=== PATIENT | female | born 1945 | race Caucasian/White ===

== ENCOUNTER 2021-09-22 09:56 | Inpatient (IN) ==
[2021-09-22] MEDS ORDERED: 0.9 % Sodium Chloride 1,000 ML IVC ONE (10:26)
[2021-09-22] MEDS ORDERED: *HR* Heparin 5,000 UNIT/ML VIAL IVP ONE ×2 (10:28→17:07)
[2021-09-22] MEDS ORDERED: *HR* Heparin 5,000 UNIT/ML VIAL IVP PRN ×4 (10:28→17:07)
[2021-09-22] MEDS ORDERED: Heparin 25,000UNIT/250ML 1/2NS 25,000 UNIT/250 ML IV.SOLN IVC SCH (10:30)
[2021-09-22 11:01] LABS: Basophils % 0.4 %; Eosinophils # 0.3 K/mcL (0.0-0.6); Eosinophils % 3.8 %; Hematocrit 44.8 % (35.3-44.9); Immature Granulocytes % 0.3 % (0-4); Lymphocytes % 27.7 %; Mean Corpuscular HGB Conc 33.5 g/dL (31.6-35.5); Mean Corpuscular Hemoglobin 29.7 pg (28.0-33.3); Mean Corpuscular Volume 88.7 fL (83.0-100.0); Mean Platelet Volume 12.1 fL (9.4-12.4); Monocytes # 0.5 K/mcL (0.0-1.3); Monocytes % 7.2 %; Neutrophils # 4.3 K/mcL (1.6-8.9); Platelet Count 161 K/mcL (140-400); Red Blood Count 5.05 M/mcL (3.82-4.97); Red Cell Distribution Width 14.3 % (11.5-14.5); Segmented Neutrophils % 60.6 %; White Blood Count 7.1 K/mcL (4.3-11.1)
[2021-09-22 11:10] LABS: Heparin anti-factor XA UFH < 0.04 IU/mL (0.30-0.70)
[2021-09-22 11:11] LABS: Prothrombin Time 11.5 Seconds (9.4-12.1)
[2021-09-22 11:12] LABS: Activated Partial Thrombo Time 31.2 Seconds (26.0-36.0); D-Dimer 1199 ng/mLFEU (0-500)
[2021-09-22] MEDS: DilTIAZem 50 MG/50 ML IV.SOLN IVC SCH ×2 (11:13→18:25)
[2021-09-22] MEDS ORDERED: Iopamidol - 370 500 ML MLS IVP ONE (11:17)
[2021-09-22 11:22] LABS: BUN/Creatinine Ratio 20 (6-26); Blood Urea Nitrogen 16 mg/dL (8-23); Calcium 9.5 mg/dL (8.6-10.3); Carbon Dioxide 24 mEq/L (23-29); Chloride 109 mEq/L (98-107); Glucose 128 mg/dL (70-105); Osmolality,Calculated 297 (280-300); Potassium 3.6 mEq/L (3.5-5.1); Sodium 142 mEq/L (136-145); eGFR For African Americans > 60 (> 60); eGFR For Non-African Americans > 60 (> 60)
[2021-09-22 11:23] LABS: Troponin I < 0.03 ng/mL (< 0.04)
[2021-09-22 12:32] LABS: Influenza A PCR Negative (Negative); Influenza B PCR Negative (Negative); Resp. Syncytial Virus PCR Negative (Negative)
[2021-09-22 13:04] LABS: SARS-CoV-2 by PCR (In House) Negative (Negative)
[2021-09-22] MEDS ORDERED: Ondansetron 4 MG/2 ML VIAL IVP PRN (13:25)
[2021-09-22] MEDS ORDERED: Naloxone 0.4 MG/ML INJ IVP PRN (13:25)
[2021-09-22] MEDS ORDERED: Perflutren Lipid Microsphere 1.3 ML in 0.9 % Sodium Chloride 8.7 ML IVP PRN (13:27)
[2021-09-22] MEDS ORDERED: DilTIAZem CD (24hr) 120 MG CAP.ER.24H PO SCH (14:00)
[2021-09-22 14:02] LABS: Magnesium 1.9 mg/dL (1.6-2.6); Phosphorous 3.1 mg/dL (2.7-4.5)
[2021-09-22] MEDS ORDERED: *HR* Warfarin 2.5 MG TABLET PO ONE (18:00)
[2021-09-22] MEDS ORDERED: Warfarin perPT PO SCH (18:00)
[2021-09-22] MEDS ORDERED: *HR* Enoxaparin 120 MG/0.8 ML SYRINGE SQ SCH (18:00)
[2021-09-23 05:00] LABS: Heparin anti-factor XA UFH 0.59 IU/mL (0.30-0.70)
[2021-09-23 05:01] LABS: INR 1.1; Prothrombin Time 12.6 Seconds (9.4-12.1)
[2021-09-23] MEDS: Heparin 25,000UNIT/250ML 1/2NS 25,000 UNIT/250 ML IV.SOLN IVC SCH (05:25)
[2021-09-23] MEDS ORDERED: Metoprolol XL (24 HR) Succ 50 MG TAB.ER.24H PO SCH (09:30)
[2021-09-23] MEDS ORDERED: Furosemide 20 MG/2 ML VIAL IVP ONE (12:40)
[2021-09-23] MEDS: DilTIAZem 50 MG/50 ML IV.SOLN IVC SCH (16:28)
[2021-09-23] MEDS ORDERED: Warfarin perPT PO PRN (18:00)
[2021-09-23] MEDS ORDERED: *HR* Warfarin 2.5 MG TABLET PO ONE (18:00)
[2021-09-23] MEDS: Acetaminophen 325 MG TABLET PO PRN (21:18)
[2021-09-23] MEDS: Metoprolol XL (24 HR) Succ 50 MG TAB.ER.24H PO SCH (21:19)
[2021-09-24 03:29] LABS: INR 1.2; Prothrombin Time 12.9 Seconds (9.4-12.1)
[2021-09-24] MEDS: Heparin 25,000UNIT/250ML 1/2NS 25,000 UNIT/250 ML IV.SOLN IVC SCH ×4 (04:44→23:08)
[2021-09-24] MEDS ORDERED: Regadenoson 0.4 MG/5 ML SYRINGE IVP ONE ×2 (06:45→11:45)
[2021-09-24] MEDS: Metoprolol XL (24 HR) Succ 50 MG TAB.ER.24H PO SCH ×2 (09:19→21:21)
[2021-09-24] MEDS ORDERED: *HR* Warfarin 2.5 MG TABLET PO ONE (18:00)
[2021-09-24] MEDS: Acetaminophen 325 MG TABLET PO PRN (23:07)
[2021-09-25 07:04] LABS: Basophils % 0.5 %; Eosinophils # 0.3 K/mcL (0.0-0.6); Hematocrit 39.4 % (35.3-44.9); Immature Granulocytes % 0.2 % (0-4); Lymphocytes # 2.5 K/mcL (0.6-4.6); Lymphocytes % 42.5 %; Mean Corpuscular Hemoglobin 28.8 pg (28.0-33.3); Mean Platelet Volume 12.2 fL (9.4-12.4); Monocytes # 0.5 K/mcL (0.0-1.3); Monocytes % 8.7 %; Neutrophils # 2.6 K/mcL (1.6-8.9); Platelet Count 127 K/mcL (140-400); Red Blood Count 4.38 M/mcL (3.82-4.97); Red Cell Distribution Width 14.4 % (11.5-14.5); Segmented Neutrophils % 43.1 %
[2021-09-25 07:11] LABS: INR 1.1; Prothrombin Time 12.7 Seconds (9.4-12.1)
[2021-09-25 07:21] LABS: BUN/Creatinine Ratio 26 (6-26); Blood Urea Nitrogen 18 mg/dL (8-23); Calcium 9.1 mg/dL (8.6-10.3); Carbon Dioxide 25 mEq/L (23-29); Chloride 108 mEq/L (98-107); Glucose 105 mg/dL (70-105); Osmolality,Calculated 292 (280-300); Sodium 140 mEq/L (136-145); eGFR For African Americans > 60 (> 60); eGFR For Non-African Americans > 60 (> 60)
[2021-09-25 07:41] LABS: Hemoglobin 12.6 g/dL (11.5-15.4)
[2021-09-25] MEDS: Metoprolol XL (24 HR) Succ 50 MG TAB.ER.24H PO SCH ×2 (09:00→19:43)
[2021-09-25] MEDS ORDERED: 0.9 % Sodium Chloride 500 ML IVC ONE (12:36)
[2021-09-25] MEDS ORDERED: Lidocaine Viscous Oral Soln 15 ML SOLUTION MM PRN (12:36)
[2021-09-25] MEDS: *HR* Midazolam HCl 5 MG/5 ML VIAL IVP PRN ×2 (13:30→13:45)
[2021-09-25] MEDS: *HR* FentaNYL (PF) 100 MCG/2 ML VIAL IVP PRN ×2 (13:30→13:45)
[2021-09-25] MEDS ORDERED: Iopamidol - 370 200 ML INFUS..BTL ONE (16:39)
[2021-09-25] MEDS ORDERED: Nitroglycerin 1,000 MCG/5 ML VIAL IV ONE (16:39)
[2021-09-25] MEDS ORDERED: *HR* Heparin 10,000 UNIT/10 ML VIAL ONE (16:39)
[2021-09-25] MEDS ORDERED: 0.9 % Sodium Chloride 1,000 ML ONE (16:39)
[2021-09-25] MEDS ORDERED: Heparin 1,000 UNITS/500 mL 500 ML ONE (16:39)
[2021-09-25] MEDS: Heparin 25,000UNIT/250ML 1/2NS 25,000 UNIT/250 ML IV.SOLN IVC SCH (17:08)
[2021-09-25] MEDS: Acetaminophen 325 MG TABLET PO PRN (19:56)
[2021-09-26] MEDS: Heparin 25,000UNIT/250ML 1/2NS 25,000 UNIT/250 ML IV.SOLN IVC SCH (00:46)
[2021-09-26 02:47] LABS: INR 1.1; Prothrombin Time 12.8 Seconds (9.4-12.1)
[2021-09-26] MEDS: Metoprolol XL (24 HR) Succ 50 MG TAB.ER.24H PO SCH (08:56)
[2021-09-26] MEDS ORDERED: 0.9 % Sodium Chloride 2,000 ML ONE (09:13)
[2021-09-26] MEDS ORDERED: Heparin 1,000 UNITS/500 mL 500 ML ONE (09:13)
[2021-09-26] MEDS ORDERED: *HR* Heparin 10,000 UNIT/10 ML VIAL ONE (09:13)
[2021-09-26] MEDS ORDERED: Iopamidol - 370 200 ML INFUS..BTL ONE (09:14)
[2021-09-26] MEDS ORDERED: Nitroglycerin 1,000 MCG/5 ML VIAL IV ONE (09:14)
[2021-09-26] MEDS ORDERED: *HR* Midazolam HCl 2 MG/2 ML VIAL ONE (09:16)
[2021-09-26] MEDS ORDERED: *HR* FentaNYL (PF) 100 MCG/2 ML VIAL ONE (09:16)
[2021-09-26 15:04] VITALS: BP 116/77; PULSE 56; TEMP 97.8; O2SAT 97
[2021-09-26] MEDS ORDERED: *HR* Warfarin 5 MG TABLET PO ONE (18:00)
[2021-09-26] MEDS ORDERED: Metoprolol XL (24 HR) Succ 50 MG TAB.ER.24H PO SCH (21:00)
== END 2021-09-26 17:30 | disposition home or self-care (01) | DRG 286 ==
LOC: 3NENU 09:56 → EMEROOARM 09:56 → 3NENU 14:20
PROVIDERS: ADMIT Student in an Organized Health Care Education/Training Program; ATTEND Student in an Organized Health Care Education/Training Program

== ENCOUNTER 2021-11-06 15:01 | Inpatient (IN) ==
[2021-11-06] MEDS ORDERED: 0.9 % Sodium Chloride 1,000 ML IV ONE (16:13)
[2021-11-06 16:33] LABS: Basophils % 0.7 %; Eosinophils # 0.3 K/mcL (0.0-0.6); Eosinophils % 5.7 %; Hematocrit 41.4 % (35.3-44.9); Immature Granulocytes % 0.2 % (0-4); Lymphocytes # 1.8 K/mcL (0.6-4.6); Lymphocytes % 31.2 %; Mean Corpuscular HGB Conc 31.4 g/dL (31.6-35.5); Mean Corpuscular Hemoglobin 28.8 pg (28.0-33.3); Mean Corpuscular Volume 91.8 fL (83.0-100.0); Mean Platelet Volume 12.3 fL (9.4-12.4); Monocytes # 0.4 K/mcL (0.0-1.3); Neutrophils # 3.2 K/mcL (1.6-8.9); Platelet Count 122 K/mcL (140-400); Red Blood Count 4.51 M/mcL (3.82-4.97); Red Cell Distribution Width 15.2 % (11.5-14.5); Segmented Neutrophils % 55.2 %; White Blood Count 5.8 K/mcL (4.3-11.1)
[2021-11-06 16:41] LABS: INR 3.1
[2021-11-06 16:56] LABS: BUN/Creatinine Ratio 17 (6-26); Blood Urea Nitrogen 15 mg/dL (8-23); Calcium 9.3 mg/dL (8.6-10.3); Carbon Dioxide 25 mEq/L (23-29); Chloride 111 mEq/L (98-107); Glucose 119 mg/dL (70-105); Magnesium 2.1 mg/dL (1.6-2.6); Osmolality,Calculated 296 (280-300); Potassium 3.7 mEq/L (3.5-5.1); Sodium 142 mEq/L (136-145); Troponin I < 0.03 ng/mL (< 0.04); eGFR For African Americans > 60 (> 60); eGFR For Non-African Americans > 60 (> 60)
[2021-11-06] MEDS: DilTIAZem 50 MG/50 ML IV.SOLN IVC SCH ×2 (17:14→23:29)
[2021-11-06 17:22] LABS: Thyroid Stimulating Hormone 0.878 mcIU/mL (0.340-5.600)
[2021-11-06] MEDS: Nitroglycerin 0.4 MG TAB.SUBL SL PRN ×2 (19:00→20:44)
[2021-11-06] MEDS ORDERED: Acetaminophen 325 MG TABLET PO PRN (19:41)
[2021-11-06] MEDS ORDERED: Naloxone 0.4 MG/ML INJ IVP PRN (19:41)
[2021-11-06] MEDS ORDERED: Melatonin 3 MG TABLET PO PRN (19:41)
[2021-11-06] MEDS ORDERED: Ondansetron 4 MG/2 ML VIAL IVP PRN (19:41)
[2021-11-07 01:43] LABS: Basophils % 0.2 %; Eosinophils # 0.4 K/mcL (0.0-0.6); Eosinophils % 6.7 %; Hematocrit 37.3 % (35.3-44.9); Hemoglobin 11.6 g/dL (11.5-15.4); Immature Granulocytes % 0.2 % (0-4); Lymphocytes # 1.6 K/mcL (0.6-4.6); Lymphocytes % 24.8 %; Mean Corpuscular HGB Conc 31.1 g/dL (31.6-35.5); Mean Corpuscular Hemoglobin 28.4 pg (28.0-33.3); Mean Corpuscular Volume 91.4 fL (83.0-100.0); Mean Platelet Volume 12.8 fL (9.4-12.4); Monocytes # 0.4 K/mcL (0.0-1.3); Monocytes % 6.8 %; Neutrophils # 3.9 K/mcL (1.6-8.9); Platelet Count 119 K/mcL (140-400); Red Blood Count 4.08 M/mcL (3.82-4.97); Red Cell Distribution Width 15.1 % (11.5-14.5); Segmented Neutrophils % 61.3 %; White Blood Count 6.3 K/mcL (4.3-11.1)
[2021-11-07 02:00] LABS: INR 3.2; Prothrombin Time 35.4 Seconds (9.4-12.1)
[2021-11-07 02:09] LABS: Alanine Aminotransferase 22 Units/L (7-52); Albumin 3.5 g/dL (3.5-5.7); Albumin/Globulin Ratio 1.6 (1.1-2.2); Alkaline Phosphatase 60 Units/L (34-104); Aspartate Amino Transferase 16 Units/L (13-39); BUN/Creatinine Ratio 19 (6-26); Bilirubin,Total 2.2 mg/dL (0.3-1.0); Blood Urea Nitrogen 16 mg/dL (8-23); Calcium 8.7 mg/dL (8.6-10.3); Carbon Dioxide 24 mEq/L (23-29); Chloride 112 mEq/L (98-107); Globulin 2.2 g/dL (2.4-3.5); Glucose 178 mg/dL (70-105); Osmolality,Calculated 300 (280-300); Phosphorous 3.4 mg/dL (2.7-4.5); Potassium 3.6 mEq/L (3.5-5.1); Sodium 142 mEq/L (136-145); Total Protein 5.7 g/dL (6.4-8.9); eGFR For African Americans > 60 (> 60); eGFR For Non-African Americans > 60 (> 60)
[2021-11-07 03:14] LABS: Troponin I < 0.03 ng/mL (< 0.04)
[2021-11-07] MEDS: Famotidine 20 MG TABLET PO SCH (06:27)
[2021-11-07] MEDS ORDERED: Metoprolol XL (24 HR) Succ 25 MG TAB.ER.24H PO SCH (09:00)
[2021-11-07] MEDS: Aspirin Enteric Coated 81 MG Tablet PO SCH (09:08)
[2021-11-07] MEDS: Metoprolol XL (24 HR) Succ 25 MG TAB.ER.24H PO SCH ×2 (09:08→20:16)
[2021-11-07] MEDS: DilTIAZem 50 MG/50 ML IV.SOLN IVC SCH ×2 (09:12→17:03)
[2021-11-07] MEDS ORDERED: Warfarin perPT PO PRN (18:00)
[2021-11-07] MEDS ORDERED: *HR* Warfarin 4 MG TABLET PO ONE (20:00)
[2021-11-08 03:07] LABS: INR 3.1; Prothrombin Time 34.3 Seconds (9.4-12.1)
[2021-11-08] MEDS: Famotidine 20 MG TABLET PO SCH (06:00)
[2021-11-08] MEDS: Metoprolol XL (24 HR) Succ 25 MG TAB.ER.24H PO SCH ×2 (08:58→20:21)
[2021-11-08] MEDS: Aspirin Enteric Coated 81 MG Tablet PO SCH (08:58)
[2021-11-08] MEDS ORDERED: *HR* Warfarin 3 MG TABLET PO ONE (18:00)
[2021-11-09 03:35] LABS: INR 2.9; Prothrombin Time 32.5 Seconds (9.4-12.1)
[2021-11-09] MEDS: Famotidine 20 MG TABLET PO SCH (06:22)
[2021-11-09] MEDS: Metoprolol XL (24 HR) Succ 25 MG TAB.ER.24H PO SCH ×2 (08:21→21:03)
[2021-11-09] MEDS: Aspirin Enteric Coated 81 MG Tablet PO SCH (08:21)
[2021-11-09] MEDS ORDERED: *HR* Warfarin 4 MG TABLET PO ONE (18:00)
[2021-11-09] MEDS ORDERED: Furosemide 40 MG/4 ML VIAL IVP SCH (21:00)
[2021-11-10 03:37] LABS: BUN/Creatinine Ratio 17 (6-26); Blood Urea Nitrogen 18 mg/dL (8-23); Calcium 8.9 mg/dL (8.6-10.3); Carbon Dioxide 28 mEq/L (23-29); Chloride 106 mEq/L (98-107); Glucose 90 mg/dL (70-105); INR 2.4; Osmolality,Calculated 295 (280-300); Potassium 3.7 mEq/L (3.5-5.1); Prothrombin Time 26.1 Seconds (9.4-12.1); Sodium 142 mEq/L (136-145); eGFR For African Americans > 60 (> 60); eGFR For Non-African Americans 50 (> 60)
[2021-11-10] MEDS: Aspirin Enteric Coated 81 MG Tablet PO SCH (08:21)
[2021-11-10] MEDS: Metoprolol XL (24 HR) Succ 25 MG TAB.ER.24H PO SCH ×2 (08:21→20:21)
[2021-11-10] MEDS: Furosemide 20 MG/2 ML VIAL IVP SCH ×2 (08:21→16:46)
[2021-11-10] MEDS ORDERED: *HR* Warfarin 3 MG TABLET PO ONE (18:00)
[2021-11-10] MEDS: Famotidine 20 MG TABLET PO SCH (20:21)
[2021-11-11 01:41] LABS: INR 2.1; Prothrombin Time 23.1 Seconds (9.4-12.1)
[2021-11-11] MEDS: Aspirin Enteric Coated 81 MG Tablet PO SCH (07:54)
[2021-11-11] MEDS: Furosemide 20 MG/2 ML VIAL IVP SCH ×2 (07:54→17:33)
[2021-11-11] MEDS: Metoprolol XL (24 HR) Succ 25 MG TAB.ER.24H PO SCH (07:55)
[2021-11-11] MEDS ORDERED: Lidocaine Viscous Oral Soln 15 ML SOLUTION MM PRN (08:58)
[2021-11-11] MEDS ORDERED: 0.9 % Sodium Chloride 500 ML IVC ONE (08:59)
[2021-11-11] MEDS: *HR* Midazolam HCl 5 MG/5 ML VIAL IVP PRN ×6 (09:50→10:25)
[2021-11-11] MEDS: *HR* FentaNYL (PF) 100 MCG/2 ML VIAL IVP PRN ×4 (09:50→10:25)
[2021-11-11] MEDS ORDERED: *HR* Warfarin 3 MG TABLET PO ONE (18:00)
[2021-11-11] MEDS: Famotidine 20 MG TABLET PO SCH (20:43)
[2021-11-12 03:29] LABS: Basophils % 0.3 %; Eosinophils # 0.4 K/mcL (0.0-0.6); Eosinophils % 6.3 %; Hematocrit 36.4 % (35.3-44.9); Hemoglobin 11.4 g/dL (11.5-15.4); Immature Granulocytes % 0.1 % (0-4); Lymphocytes # 2.3 K/mcL (0.6-4.6); Lymphocytes % 33.7 %; Mean Corpuscular HGB Conc 31.3 g/dL (31.6-35.5); Mean Corpuscular Hemoglobin 28.7 pg (28.0-33.3); Mean Corpuscular Volume 91.7 fL (83.0-100.0); Mean Platelet Volume 12.7 fL (9.4-12.4); Monocytes # 0.6 K/mcL (0.0-1.3); Monocytes % 8.2 %; Neutrophils # 3.5 K/mcL (1.6-8.9); Platelet Count 122 K/mcL (140-400); Red Blood Count 3.97 M/mcL (3.82-4.97); Segmented Neutrophils % 51.4 %; White Blood Count 6.8 K/mcL (4.3-11.1)
[2021-11-12 03:38] LABS: INR 2.4; Prothrombin Time 26.4 Seconds (9.4-12.1)
[2021-11-12 03:44] LABS: Calcium 8.6 mg/dL (8.6-10.3)
[2021-11-12] MEDS: Aspirin Enteric Coated 81 MG Tablet PO SCH (09:11)
[2021-11-12] MEDS: Furosemide 20 MG/2 ML VIAL IVP SCH (09:12)
[2021-11-12 12:23] VITALS: BP 134/66; PULSE 59; TEMP 97.7; O2SAT 99
[2021-11-12] MEDS ORDERED: *HR* Warfarin 3 MG TABLET PO ONE (18:00)
[2021-11-13] MEDS ORDERED: Furosemide 40 MG TABLET PO SCH (09:00)
== END 2021-11-12 17:42 | disposition home or self-care (01) | DRG 308 ==
LOC: EMEROOARM 15:01 → 2ANU 15:01 → SUATTDRO 19:38 → 2ANU 19:41 → SUATTDRO 11-09 15:45
PROVIDERS: ADMIT Internal Medicine; ATTEND Internal Medicine

== ENCOUNTER 2021-11-22 01:59 | Inpatient (IN) ==
[2021-11-22] MEDS ORDERED: 0.9 % Sodium Chloride 1,000 ML IVC ONE (02:30)
[2021-11-22 02:47] LABS: Bilirubin,Urine Negative (Negative); Blood,Urine Negative (Negative); Clarity,Urine Clear (Clear); Color,Urine Colorless (Yellow); Glucose,Urine (UA) Normal (Normal); Ketones,Urine Negative (Negative); Leukocyte Esterase,Urine Negative (Negative); Nitrite,Urine Negative (Negative); PH,Urine 7.5 pH Units (5.0-8.0); Protein,Urine Negative (Neg-Trace); Urobilinogen,Urine Normal (Normal)
[2021-11-22 02:58] LABS: Basophils % 0.2 %; Eosinophils # 0.2 K/mcL (0.0-0.6); Eosinophils % 2.2 %; Hematocrit 40.7 % (35.3-44.9); Hemoglobin 12.9 g/dL (11.5-15.4); Immature Granulocytes % 0.2 % (0-4); Lymphocytes # 1.9 K/mcL (0.6-4.6); Lymphocytes % 20.4 %; Mean Corpuscular HGB Conc 31.7 g/dL (31.6-35.5); Mean Corpuscular Hemoglobin 28.4 pg (28.0-33.3); Mean Corpuscular Volume 89.5 fL (83.0-100.0); Mean Platelet Volume 12.9 fL (9.4-12.4); Monocytes # 0.5 K/mcL (0.0-1.3); Monocytes % 4.9 %; Neutrophils # 6.8 K/mcL (1.6-8.9); Platelet Count 141 K/mcL (140-400); Red Blood Count 4.55 M/mcL (3.82-4.97); Red Cell Distribution Width 14.6 % (11.5-14.5); Segmented Neutrophils % 72.1 %; White Blood Count 9.4 K/mcL (4.3-11.1)
[2021-11-22 03:15] LABS: Alanine Aminotransferase 52 Units/L (7-52); Albumin 4.1 g/dL (3.5-5.7); Albumin/Globulin Ratio 1.5 (1.1-2.2); Alkaline Phosphatase 68 Units/L (34-104); Aspartate Amino Transferase 59 Units/L (13-39); BUN/Creatinine Ratio 17 (6-26); Bilirubin,Total 2.2 mg/dL (0.3-1.0); Blood Urea Nitrogen 12 mg/dL (8-23); Calcium 9.3 mg/dL (8.6-10.3); Carbon Dioxide 25 mEq/L (23-29); Chloride 107 mEq/L (98-107); Globulin 2.7 g/dL (2.4-3.5); Glucose 142 mg/dL (70-105); Magnesium 1.8 mg/dL (1.6-2.6); Osmolality,Calculated 296 (280-300); Potassium 3.1 mEq/L (3.5-5.1); Sodium 142 mEq/L (136-145); Total Protein 6.8 g/dL (6.4-8.9)
[2021-11-22 03:17] LABS: Troponin I < 0.03 ng/mL (< 0.04)
[2021-11-22 03:22] LABS: Influenza A PCR Negative (Negative); Influenza B PCR Negative (Negative); Resp. Syncytial Virus PCR Negative (Negative)
[2021-11-22 03:25] LABS: SARS-CoV-2 by PCR (In House) Negative (Negative)
[2021-11-22 03:28] LABS: Thyroid Stimulating Hormone 1.873 mcIU/mL (0.340-5.600)
[2021-11-22] MEDS ORDERED: Melatonin 3 MG TABLET PO PRN (04:19)
[2021-11-22] MEDS ORDERED: *HR* HYDROcodone/Acet 5/325 mg TABLET PO PRN (04:19)
[2021-11-22] MEDS ORDERED: *HR* OxyCODONE Immed Rel 5 MG TABLET PO PRN (04:19)
[2021-11-22] MEDS ORDERED: Naloxone 0.4 MG/ML INJ IVP PRN (04:19)
[2021-11-22] MEDS: Aspirin Enteric Coated 81 MG Tablet PO SCH (08:01)
[2021-11-22 10:18] LABS: INR 2.2; Prothrombin Time 24.2 Seconds (9.4-12.1)
[2021-11-22] MEDS: Metoprolol XL (24 HR) Succ 25 MG TAB.ER.24H PO SCH (11:13)
[2021-11-22] MEDS: Furosemide 40 MG TABLET PO SCH (11:13)
[2021-11-22] MEDS ORDERED: *HR* Warfarin 3 MG TABLET PO ONE (18:00)
[2021-11-22] MEDS ORDERED: Warfarin perPT PO PRN (18:00)
[2021-11-23 02:47] LABS: Hematocrit 41.9 % (35.3-44.9); Hemoglobin 13.4 g/dL (11.5-15.4); Mean Corpuscular Hemoglobin 28.3 pg (28.0-33.3); Mean Corpuscular Volume 88.6 fL (83.0-100.0); Platelet Count 135 K/mcL (140-400); Red Blood Count 4.73 M/mcL (3.82-4.97); Red Cell Distribution Width 14.7 % (11.5-14.5); White Blood Count 7.1 K/mcL (4.3-11.1)
[2021-11-23 02:51] LABS: INR 2.5; Prothrombin Time 28.1 Seconds (9.4-12.1)
[2021-11-23 03:00] LABS: Calcium 8.9 mg/dL (8.6-10.3); Chol/HDL Ratio 2.7 (0-4.9); Magnesium 1.9 mg/dL (1.6-2.6); Phosphorous 3.9 mg/dL (2.7-4.5); Potassium 3.3 mEq/L (3.5-5.1)
[2021-11-23] MEDS: Ondansetron ODT 4 MG TAB.RAPDIS SL PRN (05:05)
[2021-11-23] MEDS: Aspirin Enteric Coated 81 MG Tablet PO SCH (07:47)
[2021-11-23] MEDS: Furosemide 40 MG TABLET PO SCH (07:47)
[2021-11-23] MEDS: Metoprolol XL (24 HR) Succ 25 MG TAB.ER.24H PO SCH ×2 (07:49→08:35)
[2021-11-23] MEDS ORDERED: 0.9 % Sodium Chloride 1,000 ML IVC SCH (12:45)
[2021-11-23] MEDS ORDERED: *HR* Warfarin 4 MG TABLET PO ONE (18:00)
[2021-11-23] MEDS ORDERED: Metoprolol XL (24 HR) Succ 25 MG TAB.ER.24H PO SCH (21:00)
[2021-11-24 01:58] LABS: Basophils % 0.4 %; Eosinophils # 0.4 K/mcL (0.0-0.6); Hematocrit 43.2 % (35.3-44.9); Hemoglobin 13.3 g/dL (11.5-15.4); Immature Granulocytes % 0.1 % (0-4); Lymphocytes # 2.6 K/mcL (0.6-4.6); Lymphocytes % 36.5 %; Mean Corpuscular HGB Conc 30.8 g/dL (31.6-35.5); Mean Corpuscular Hemoglobin 28.2 pg (28.0-33.3); Mean Corpuscular Volume 91.5 fL (83.0-100.0); Mean Platelet Volume 12.5 fL (9.4-12.4); Monocytes # 0.5 K/mcL (0.0-1.3); Monocytes % 7.5 %; Neutrophils # 3.6 K/mcL (1.6-8.9); Platelet Count 128 K/mcL (140-400); Red Blood Count 4.72 M/mcL (3.82-4.97); Red Cell Distribution Width 14.7 % (11.5-14.5); Segmented Neutrophils % 49.5 %; White Blood Count 7.2 K/mcL (4.3-11.1)
[2021-11-24 02:04] LABS: INR 2.4; Prothrombin Time 26.8 Seconds (9.4-12.1)
[2021-11-24 02:15] LABS: Calcium 8.6 mg/dL (8.6-10.3); Potassium 3.7 mEq/L (3.5-5.1)
[2021-11-24] MEDS: Aspirin Enteric Coated 81 MG Tablet PO SCH (08:02)
[2021-11-24] MEDS: Furosemide 40 MG TABLET PO SCH (08:02)
[2021-11-24] MEDS: Metoprolol XL (24 HR) Succ 25 MG TAB.ER.24H PO SCH ×2 (08:02→20:58)
[2021-11-24] MEDS: Acetaminophen 325 MG TABLET PO PRN (16:44)
[2021-11-24] MEDS ORDERED: *HR* Warfarin 3 MG TABLET PO ONE (18:00)
[2021-11-25 02:12] LABS: Basophils % 0.4 %; Eosinophils # 0.6 K/mcL (0.0-0.6); Eosinophils % 8.4 %; Hematocrit 40.7 % (35.3-44.9); Hemoglobin 13.1 g/dL (11.5-15.4); Immature Granulocytes % 0.1 % (0-4); Lymphocytes # 2.7 K/mcL (0.6-4.6); Lymphocytes % 36.7 %; Mean Corpuscular HGB Conc 32.2 g/dL (31.6-35.5); Mean Corpuscular Hemoglobin 28.4 pg (28.0-33.3); Mean Corpuscular Volume 88.3 fL (83.0-100.0); Mean Platelet Volume 12.5 fL (9.4-12.4); Monocytes # 0.5 K/mcL (0.0-1.3); Monocytes % 6.9 %; Neutrophils # 3.4 K/mcL (1.6-8.9); Platelet Count 139 K/mcL (140-400); Red Blood Count 4.61 M/mcL (3.82-4.97); Red Cell Distribution Width 14.6 % (11.5-14.5); Segmented Neutrophils % 47.5 %; White Blood Count 7.3 K/mcL (4.3-11.1)
[2021-11-25 02:33] LABS: Calcium 8.6 mg/dL (8.6-10.3); Potassium 3.4 mEq/L (3.5-5.1)
[2021-11-25 02:56] LABS: INR 2.2; Prothrombin Time 24.5 Seconds (9.4-12.1)
[2021-11-25] MEDS: Metoprolol XL (24 HR) Succ 25 MG TAB.ER.24H PO SCH ×2 (09:12→20:29)
[2021-11-25] MEDS: Furosemide 40 MG TABLET PO SCH (09:13)
[2021-11-25] MEDS: Aspirin Enteric Coated 81 MG Tablet PO SCH (09:13)
[2021-11-25] MEDS ORDERED: polyethylene glycoL 3350 17 GM POWD.PACK PO PRN (14:26)
[2021-11-25] MEDS ORDERED: *HR* Warfarin 3 MG TABLET PO ONE (18:00)
[2021-11-26 03:01] LABS: Basophils % 0.4 %; Eosinophils # 0.6 K/mcL (0.0-0.6); Eosinophils % 7.5 %; Hematocrit 42.7 % (35.3-44.9); Hemoglobin 13.6 g/dL (11.5-15.4); Immature Granulocytes % 0.3 % (0-4); Lymphocytes # 2.7 K/mcL (0.6-4.6); Lymphocytes % 34.8 %; Mean Corpuscular HGB Conc 31.9 g/dL (31.6-35.5); Mean Corpuscular Hemoglobin 28.3 pg (28.0-33.3); Mean Corpuscular Volume 88.8 fL (83.0-100.0); Mean Platelet Volume 12.6 fL (9.4-12.4); Monocytes # 0.6 K/mcL (0.0-1.3); Monocytes % 7.2 %; Neutrophils # 3.9 K/mcL (1.6-8.9); Platelet Count 137 K/mcL (140-400); Red Blood Count 4.81 M/mcL (3.82-4.97); Red Cell Distribution Width 14.7 % (11.5-14.5); Segmented Neutrophils % 49.8 %; White Blood Count 7.7 K/mcL (4.3-11.1)
[2021-11-26 03:14] LABS: Calcium 8.7 mg/dL (8.6-10.3); Potassium 3.3 mEq/L (3.5-5.1)
[2021-11-26 03:27] LABS: INR 2.1; Prothrombin Time 23.7 Seconds (9.4-12.1)
[2021-11-26] MEDS: Metoprolol XL (24 HR) Succ 25 MG TAB.ER.24H PO SCH (08:08)
[2021-11-26] MEDS: Aspirin Enteric Coated 81 MG Tablet PO SCH (08:09)
[2021-11-26] MEDS: Furosemide 40 MG TABLET PO SCH (08:12)
[2021-11-26] MEDS ORDERED: 0.9 % Sodium Chloride 500 ML IVC ONE (11:11)
[2021-11-26] MEDS: *HR* FentaNYL (PF) 100 MCG/2 ML VIAL IVP PRN ×4 (11:35→11:46)
[2021-11-26] MEDS: *HR* Midazolam HCl 5 MG/5 ML VIAL IVP PRN ×4 (11:35→11:46)
[2021-11-26] MEDS: Ondansetron ODT 4 MG TAB.RAPDIS SL PRN (17:16)
[2021-11-26] MEDS ORDERED: *HR* Warfarin 3 MG TABLET PO ONE (18:00)
[2021-11-26] MEDS: Acetaminophen 325 MG TABLET PO PRN (20:29)
[2021-11-26] MEDS ORDERED: Metoprolol XL (24 HR) Succ 25 MG TAB.ER.24H PO SCH (21:00)
[2021-11-27 05:45] LABS: INR 2.4; Prothrombin Time 26.5 Seconds (9.4-12.1)
[2021-11-27 05:47] LABS: Calcium 9.1 mg/dL (8.6-10.3); Potassium 3.9 mEq/L (3.5-5.1)
[2021-11-27 07:36] VITALS: BP 119/74; PULSE 71; TEMP 98.4; O2SAT 96
[2021-11-27] MEDS ORDERED: Metoprolol XL (24 HR) Succ 25 MG TAB.ER.24H PO SCH (09:00)
[2021-11-27] MEDS: Furosemide 40 MG TABLET PO SCH (09:15)
[2021-11-27] MEDS: Aspirin Enteric Coated 81 MG Tablet PO SCH (09:15)
[2021-11-27] MEDS ORDERED: *HR* Warfarin 3 MG TABLET PO ONE (18:00)
== END 2021-11-27 16:16 | disposition home or self-care (01) | DRG 309 ==
LOC: EMEROOARM 01:59 → 2ANU 01:59 → SUATTDRO 04:37 → 2ANU 05:48 → SUATTDRO 11-23 17:30
PROVIDERS: ADMIT Internal Medicine; ATTEND General Practice